=== PATIENT | male | born 1995 | race Caucasian/White ===

== ENCOUNTER 2019-04-01 16:29 | Emergency (ER) | payer OTHER ==
[~2019-04-01] VITALS: Ht 175.3 cm; Wt 102.1 kg
[2019-04-01] MEDS ORDERED: VISTARIL50 MG PO (21:52)
== END 2019-04-01 21:54 | disposition home or self-care (01) ==
LOC: ER 16:29 → EDBD 17:06 → ER 21:54
DX: R00.2 Palpitations (principal); F06.4 Anxiety disorder due to known physiological condition